=== PATIENT | female | born 1990 | race Caucasian/White ===

== ENCOUNTER 2025-10-19 09:16 | Emergency (ER) | payer OTHER, SELFPAY ==
[2025-10-19 09:18] VITALS: BP 126/88
[2025-10-19 09:34] VITALS: BMI 22.3
--- NOTE | 2025-10-19 10:26 | ED.GENMED ---
History of Present Illness
General
Chief Complaint: Musculo-Skeletal Complaint
Source: patient
Exam Limitations: none
Time Seen by Provider: 10/19/25 09:36
Nursing documentation reviewed up to this point in time: agreed with
History of Present Illness
History of Present Illness:
35-year-old female with a past medical history of IBS who presents to the ER for evaluation of neck pain. Patient reports that symptoms have been ongoing for over a month�she says she woke up just before [place] with some pain in her neck and
it never really went away. She reports pain in the left upper neck. Worse with certain movements. She says that over the past 3 or 4 days pain has been much worse and a bit sharper. She did have some transient paresthesias in the left arm but
nothing consistent. No numbness or weakness or radicular shooting pains down the left arm. She denies any headache. She denies any throat pain, voice change. She denies any trauma or injury that she can recall. She has only taken Tylenol for
her pain.
Review of Systems
Review of Systems
All Other Systems: ROS reviewed and negative except as documented in HPI and ROS
Constitutional: Denies fever or chills
EENT: Denies sore throat
Musculoskeletal: Reports neck pain
Neurological: Denies headache, weakness or numbness
Phy Exam
Physical Exam
Physical Exam:
General: Awake, alert, oriented x3; no acute distress
Head: Normocephalic, atraumatic
Eyes: Conjunctiva normal, EOMI, pupils equal round reactive to light bilaterally
Throat: Airway intact, handling secretions, no tonsillar enlargement or exudate, midline uvula
Neck: Trachea midline, supple without meningismus; she has focal tenderness left occiput and along the left upper trapezius muscle; no midline cervical tenderness; she does have full range of motion in the neck has some mild pain on rotation towards
the right and extension
Lungs: Breathing comfortably not in distress
Heart: Regular rate
Neuro: Cranial nerves grossly intact, speech fluid, motor and sensory intact in extremities�specifically intact radial, median, ulnar nerve distribution left upper extremity
Extremities: Warm and dry
Scores
Heart Failure Risk
Heart Failure Risk Score: Not Applicable
Heart Score for Chest Pain Patients
STEMI patient?: Not applicable
Withdrawal Assessment of Alcohol
Withdrawal Assessment Completed?: Not applicable
Course
Orders/Labs/Results
Orders:
Orders
10/19/25 10:24
Ketorolac [Toradol] 30 mg IM NOW STA
CR Cervical Spine 4 Or 5 Vw Urgent
Comment:
Reason For Exam: neck pain
10/19/25 10:48
Lidocaine [Lidocaine 4% Patch] 1 patch TOPICAL ONCE ONE
Apply Lidocaine patch(s) to:: left neck
Vital Signs
Initial and Last Documented VS:
Initial Vital Signs
Temp Pulse Resp BP Pulse Ox
36.9 C 75 18 126/88 99
10/19/25 09:18 10/19/25 09:18 10/19/25 09:18 10/19/25 09:18 10/19/25 09:18
Last Documented Vital Signs
Temp Pulse Resp BP Pulse Ox
36.9 C 75 18 126/88 99
10/19/25 09:18 10/19/25 09:18 10/19/25 09:18 10/19/25 09:18 10/19/25 10:33
MDM/Problems Addressed
Differential Diagnosis Includes:
Muscular strain, pinched nerve/radiculopathy, fracture less likely; nothing to suggest RPA/[employer]ITECTURAL MODELER; nothing to suggest dissection or vascular pathology
MDM/Problems Addressed:
35-year-old female presents for left-sided neck pain ongoing for months worse over the past few days. No traumatic mechanism. Vitals and exam as above that she is focally tender over the musculature on the left side as noted. No midline
tenderness. Good range of motion. Neuroexam intact. Nothing to suggest dissection. Nothing to suggest RPA/ARCHITECTURAL MODELER. Fracture very unlikely without traumatic mechanism or midline tenderness however given prolonged symptoms with no prior imaging will
check x-ray. Treat with Toradol. If x-ray shows nothing acute can likely be discharged with supportive care.
X-ray reviewed by me shows no acute abnormality. Clinical reassessment patient feeling better after treatment here. Suspect muscular neck pain. Will trial muscle relaxer, Lidoderm, continue Tylenol that she has been advised to avoid NSAIDs due to
history of IBS and GERD. Can follow-up with her primary care physician on an outpatient basis. All questions answered.
*Radiology
Radiology exam reviewed: preliminary read by ED provider
*Pulse Oximetry
SaO2: 99
Oxygen Mode of Delivery: Room air
Patient hypoxic: no (99%)
*Critical Care Note
Total Time (30-74mins, 75-104mins- exclusive of procedures): Not Applicable
Data Reviewed
Source: patient and family
ED Attending Note
-
Portions of this chart may have been created with voice recognition software.� Occasional wrong word or��sound alike� substitutions may have occurred due to the inherent limitations of voice recognition software.
Discharge Plan
Departure
Patient Disposition: Home (Routine Discharge)
Date of Disposition: 10/19/25
Time of Disposition: 11:54
Patient with high blood pressure during this ER visit?: No
Discharge Problem:
Neck pain
Instructions: Neck pain - ED (DC)
Prescriptions:
New
cyclobenzaprine 5 mg tablet
5 mg PO TID PRN (Reason: muscle spasm) Qty: 10 0RF
lidocaine [Lidoderm] 5 % adhesive patch,medicated
1 patch topical DAILY Qty: 15 0RF
Referrals:
Nora Hernandez MD [Family Provider, Family Practice] - Follow up in 1 week
Activity Restrictions/Additional Instructions:
Thank you for visiting the Emergency Department at [facility].
1. Please schedule a follow up appointment as directed. Call first thing tomorrow morning to make an appointment.
2. If indicated, please take your medications as instructed and indicated on discharge paperwork.
3. If any of your symptoms do not improve, or persist, or become more severe within 6-12 hours, please return to the emergency department for further care.
4. Please return to the emergency department if you develop a headache, neck pain/stiffness, fever greater than 100.4F, chest pain, shortness of breath, persistent nausea, vomiting, slurred speech, difficulty walking, numbness/tingling, weakness,
signs of infection or any other symptoms that are worrisome to you.
Please call [phone] if you have any questions.
Interventions
Interventions:
*General Assessment Last Done: 10/19/25 09:34
*Neglect/Abuse Screening Last Done: 10/19/25 09:34
*ED COVID-19 Vaccine History Last Done: 10/19/25 09:34
*ED Influenza Vaccine History Last Done: 10/19/25 09:34
[facility] Fall Risk Assessment Tool Last Done: 10/19/25 09:34
*Risk Screen - Suicide (C-SSRS) Last Done: 10/19/25 09:18
ED-Musculoskeletal Assessment Last Done: 10/19/25 09:34
Discharge Date and Time
Print Language: CAMEROONIAN
[2025-10-19] MEDS: TORADOL 30 MG IM (10:32)
[2025-10-19] MEDS: LIDOCAINE 4% PATCH 1 PATCH TOPICAL (10:51)
== END 2025-10-19 11:58 | disposition home or self-care (01) ==
LOC: EMR 09:16
PROVIDERS: EMERGENCY PHYSICIAN Emergency Medicine; FAMILY PHYSICIAN Student in an Organized Health Care Education/Training Program
DX: M54.2 Cervicalgia (principal); K58.9 Irritable bowel syndrome, unspecified
CPT/HCPCS: 96372; 99284; 72050